=== PATIENT | male | born 1950 | race Caucasian/White ===

== ENCOUNTER 2020-06-05 08:58 | Outpatient (CLI) | payer MEDICARE, BC, OTHER ==
[2020-06-06 13:13] LABS: SARS-CoV-2 MS2 Positive; SARS-CoV-2 N Gene Negative; SARS-CoV-2 S Gene Negative; SARS-CoV-2 by NAA Not Detected (NotDetected); SARS-CoV-2 orf1ab Negative
== END 2020-06-05 08:59 | disposition home or self-care (01) ==
LOC: LABBT 08:58
PROVIDERS: ATTEND Ophthalmology Retina Specialist
DX: Z01.812 Encounter for preprocedural laboratory examination (principal); Z11.59 Encounter for screening for other viral diseases; H33.23 Serous retinal detachment, bilateral
CPT/HCPCS: 87635; U0003

== ENCOUNTER 2020-09-10 07:18 | Outpatient (CLI) | payer MEDICARE, BC ==
[2020-09-11 13:37] LABS: SARS-CoV-2 MS2 Positive; SARS-CoV-2 N Gene Negative; SARS-CoV-2 S Gene Negative; SARS-CoV-2 by NAA Not Detected (NotDetected); SARS-CoV-2 orf1ab Negative
== END 2020-09-10 07:19 | disposition home or self-care (01) ==
LOC: LABBT 07:18
PROVIDERS: ATTEND Ophthalmology Retina Specialist
DX: H43.312 Vitreous membranes and strands, left eye (principal); Z20.828 Contact with and (suspected) exposure to other viral communicable diseases
CPT/HCPCS: 87635; U0003

== ENCOUNTER 2020-09-13 05:48 | Day surgery (SDC) | payer MEDICARE, BC ==
[2020-09-13] MEDS ORDERED: Fluorouracil 100 MG, Enoxaparin Sodium 25 MG, EPINEPHrine 0.3 MG in Ophthalmic Irrigati... IRR SCH (06:00)
[2020-09-13] MEDS ORDERED: Phenylephrine 2.5% Ophth Soln 5 ML BOT ONE (06:16)
[2020-09-13] MEDS ORDERED: Cyclopentolate 1% Opth Drop 2 ML BOT ONE (06:16)
[2020-09-13] MEDS ORDERED: Fentanyl 100 MCG/2 ML VIAL ONE (06:38)
[2020-09-13] MEDS ORDERED: Midazolam HCl 2 mg/2 ml Vial ONE (06:38)
[2020-09-13] MEDS ORDERED: Triamcinolone 40 MG/ML VIAL ONE (09:37)
[2020-09-13] MEDS ORDERED: Lidocaine 4% PF 5 ML AMP ONE (09:37)
[2020-09-13] MEDS ORDERED: Maxitrol 0.1% Opth Oint 3.5 GM TUBE ONE (09:37)
[2020-09-13] MEDS ORDERED: Lidocaine 1% PF 5 ML VIAL ONE (09:37)
[2020-09-13] MEDS ORDERED: CEFAZOLIN 1 GM VIAL ONE (09:37)
[2020-09-13] MEDS ORDERED: Enoxaparin Sodium 30 MG/0.3 ML SYRINGE ONE (09:37)
[2020-09-13] MEDS ORDERED: Bupivacaine PF 0.75% SDV 10 ML ONE (09:37)
[2020-09-13] MEDS ORDERED: PROPOFOL 200 MG/20 ML VIAL ONE (09:37)
--- NOTE | 2020-09-14 13:52 | OP ---
DATE OF PROCEDURE: 09/13/2020 PREOPERATIVE DIAGNOSIS: Vitreous opacification, left eye. POSTOPERATIVE DIAGNOSIS: Vitreous opacification, left eye. PROCEDURE PERFORMED: Pars plana vitrectomy, membrane peel, left eye. ANESTHESIA: Local with monitored anesthesia care. DESCRIPTION OF PROCEDURE: The patient was identified in the preoperative holding area. Appropriate informed consent for the planned surgical procedure on the left eye had been obtained. The patient was transported to the operative suite and appropriate cardiopulmonary monitoring established. Local anesthesia obtained using retrobulbar modified Van Lint lid block using 50:50 mixture of 4% lidocaine and 0.75% bupivacaine. The patient was prepped and draped in the usual sterile manner for ophthalmic surgery on the left eye. Lid speculum was placed in the left eye. A 27-gauge trocar was placed in conjunctiva and sclera superotemporally, inferotemporally. A 20-gauge sclerotomy was created supranasally. Viscous fluid removal device was inserted into the eye and silicone oil was removed. Vitreous cutter was inserted to the eye, and residual membranes were peeled from the anterior vitreous and anterior retina. Indirect ophthalmoscopy was used to examine the retina 360 degrees. No holes, breaks, or tears were identified. Trocars were suture closed with 7-0 Vicryl suture and 6-0 plain gut suture. Retrobulbar Kenalog and subconjunctival Ancef were placed. Antibiotic ointment was placed. The eye was patched and shielded. The patient was taken to postoperative recovery unit in good condition, having suffered no immediate perioperative complications. The patient was instructed to keep patch and shield on, avoid lifting or bending. Followup appointment with Dr. Hernandez. Job ID: [id number] [facility]
== END 2020-09-13 08:45 | disposition home or self-care (01) ==
LOC: SDC 05:48
PROVIDERS: ATTEND Ophthalmology Retina Specialist
PROC: 08T53ZZ Resection of Left Vitreous, Percutaneous Approach (ICD-10-PCS; principal; 2020-09-13)
PROC: 08NF3ZZ Release Left Retina, Percutaneous Approach (ICD-10-PCS; 2020-09-13)
DX: H43.392 Other vitreous opacities, left eye (principal); Z79.899 Other long term (current) drug therapy; Z88.2 Allergy status to sulfonamides
CPT/HCPCS: J0171; J0690; J1650; J2001; J2250; J2704; J3010; J3301; J3490; J9190

== ENCOUNTER 2022-05-22 14:27 | Outpatient (CLI) | payer MEDICARE, BC ==
[2022-05-22 10:42] VITALS: BMI 23.6
== END 2022-05-22 14:28 | disposition home or self-care (01) ==
LOC: LABBT 14:27
PROVIDERS: ATTEND Orthopaedic Surgery Hand Surgery
DX: Z01.818 Encounter for other preprocedural examination (principal); M72.0 Palmar fascial fibromatosis [Dupuytren]; Z20.822 Contact with and (suspected) exposure to COVID-19
CPT/HCPCS: 87811; 93005; 93010

== ENCOUNTER 2022-08-28 10:14 | Outpatient (CLI) | payer MEDICARE, BC | END 2022-08-28 10:15 | disposition home or self-care (01) | LOC: TBSIIMAG 10:14 | PROVIDERS: ATTEND Neurological Surgery | DX: M47.26 Other spondylosis with radiculopathy, lumbar region (principal); N28.9 Disorder of kidney and ureter, unspecified; M47.27 Other spondylosis with radiculopathy, lumbosacral region; M47.25 Other spondylosis with radiculopathy, thoracolumbar region | CPT/HCPCS: 72148 ==

== ENCOUNTER 2022-10-21 08:43 | Outpatient (CLI) | payer MEDICARE, BC | END 2022-10-21 08:44 | disposition home or self-care (01) | LOC: TBSIIMAG 08:43 | PROVIDERS: ATTEND Neurological Surgery | DX: R20.2 Paresthesia of skin (principal) | CPT/HCPCS: 70551 ==